=== PATIENT | male | born 2000 | race Hispanic/Latino ===

== ENCOUNTER 2023-11-26 22:56 | Inpatient (IN) | payer BC ==
[2023-11-26] MEDS ORDERED: ONDANSETRON 4 MG/2 ML VIAL ONE (23:25)
[2023-11-26] MEDS ORDERED: FAMOTIDINE 20 MG/2 ML VIAL IV ONE (23:25)
[2023-11-26] MEDS ORDERED: NA CHLORIDE 0.9% 1,000 ML ONE (23:26)
[2023-11-26 23:50] LABS: Absolute Monocytes 0.7 K/uL (0.1-1.3); Absolute Neutrophil 11.6 K/uL (1.8-8.0); Basophils % 0.2 % (0-1.3); Hematocrit 54.4 % (39.6-49.0); Hemoglobin 18.2 g/dL (13.6-17.9); Lymphocytes % 7.6 % (15.3-44.8); MCH 30.7 pg (27.0-35.0); MCHC 33.4 g/dL (32.0-36.0); MCV 91.8 fL (80-100); MPV 7.6 fL (7.6-11.3); Monocytes % 5.2 % (3.3-12.3); Platelets 439 thou/uL (152-406); RBC Red Blood Cell Count 5.92 M/uL (4.33-5.43); Red Cell Distribution Width 14.6 % (12.1-15.2)
[2023-11-26 23:56] LABS: Albumin 6.1 g/dL (3.4-5.0); Albumin/Globulin Ratio 1.2 (1.1-1.8); Anion Gap 17.2 mEq/L (5.0-15.0); Bilirubin Total 1.5 mg/dL (0.2-1.0); Potassium 4.2 mEq/L (3.5-5.1); Protein, Total 11.1 g/dL (6.4-8.2)
[2023-11-27] MEDS ORDERED: NA CHLORIDE 0.9% 1,000 ML ONE (00:09)
--- NOTE | 2023-11-27 00:12 | EDPHYS ---
Physician Documentation [facility] Name: Thaddeus Mathur Jr Age: 23 yrs Sex: Male : 2000 Arrival Date: 11/26/2023 Time: 22:56 Bed 19 Private MD: ED Physician Warner Mccullough HPI: 11/25 23:02 This 23 yrs old Male presents to ER via Unassigned with complaints of Heat kb Exposure, Nausea/Vomiting. 23:02 Pt is a 23 year old male who presents for nausea, vomiting and muscle cramps that kb started around noon today. 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 States he had to finish the day so he continued to work, but would vomit every time he tried to drink water. No aggravating or alleviating factors.. Historical: - Allergies: 23:15 No Known Allergies; ha1 - PMHx: 23:15 None; ha1 - Immunization history:: Adult Immunizations up to date. - Infectious Disease History:: Denies. - Social history:: Smoking status: Reported history of juuling and/or vaping. ROS: 23:02 Constitutional: As per HPI kb Exam: 23:02 Constitutional: This is a well developed, well nourished patient who is awake, alert, kb and in no acute distress. Head/Face: Normocephalic, atraumatic. ENT: Moist Mucous membranes Cardiovascular: Regular rate Respiratory: Respirations even and unlabored. No increased work of breathing. Talking in full sentences Abdomen/GI: Soft, non-tender. No distention Skin: Warm, dry with normal turgor. Normal color. MS/ Extremity: Pulses equal, no cyanosis. Neurovascular intact. Full, normal range of motion. Neuro: Awake and alert, GCS 15, oriented to person, place, time, and situation. Moves all extremities. Normal gait. Vital Signs: 23:04 BP 115 / 81; Pulse 105; Resp 18 S; Temp 98.1(O); Pulse Ox 98% on R/A; Weight 79.38 kg ha1 (R); Height 5 ft. 4 in. ; 23:15 BP 117 / 80; Pulse 89; Resp 19; Temp 98; Pulse Ox 99% on R/A; rg5 08/ 00:17 BP 127 / 78; Pulse 88; Resp 17; Temp 98; Pulse Ox 97% on R/A; rg5 01:10 BP 118 / 75; Pulse 85; Resp 17 S; Pulse Ox 97% on R/A; ha1 11/25 23:04 Body Mass Index 30.04 (79.38 kg, 162.56 cm) ha MDM: 11/25 23:00 Patient medically screened. kb 23:04 Differential diagnosis: dehydration, abnormal electrolytes, rhabdomyolysis. Data kb reviewed: vital signs, nurses notes. 11/26 00:11 Consideration of Admission/Observation Patient was admitted/placed on observation. kb Escalation of care including admission/observation considered. Management of patient was discussed with the following: Hospitalist: Dr Goodrich accepts pt for admission. Counseling: I had a detailed discussion with the patient and/or guardian regarding the historical points, exam findings, and any diagnostic results supporting the discharge/admit diagnosis, lab results, radiology results, the need for further work-up and treatment in the hospital. 11/25 23:04 Order name: CBC with Diff; Complete Time: 01:39 kb 11/25 23:04 Order name: CMP; Complete Time: 00:00 kb 11/25 23:04 Order name: Lipase; Complete Time: 00:00 kb 11/25 23:04 Order name: CPK; Complete Time: 00:00 kb 11/25 23:54 Order name: Manual Differential; Complete Time: 01:39 EDMS 11/26 01:29 Order name: Urinalysis w/ reflexes [facility] 11/26 01:29 Order name: CBC with Automated Diff [facility] 11/26 01:29 Order name: CBC with Automated Diff [facility] 11/26 01:29 Order name: Comprehensive Metabolic Panel [facility] 11/26 01:29 Order name: Comprehensive Metabolic Panel [facility] 11/25 23:04 Order name: IV Saline Lock; Complete Time: 23:33 kb 11/25 23:04 Order name: Labs collected and sent; Complete Time: 23:33 kb Administered Medications: 11/25 23:00 Drug: Ondansetron IVP 4 mg IVP once; over 2 minutes Route: IVP; Site: right antecubital;[facility] 11/26 00:06 Follow up: Response: No adverse reaction [facility] 11/25 23:30 Drug: NS 0.9% IV 1000 ml IV at 1 bolus Per protocol; 1000 mL bolus Route: IV; Rate: 1 rg5 bolus; Site: right antecubital; 23:30 Drug: Famotidine IVP 20 mg IVP once; dilute with 10 mL 0.9% NaCl; give over 2 minutes rg5 Route: IVP; Site: right antecubital; 11/26 00:06 Follow up: Response: No adverse reaction rg5 00:12 Drug: NS 0.9% IV 1000 ml IV at 1000 ml once Route: IV; Rate: 1000 ml; Site: right rg5 antecubital; 00:17 Drug: Cyclobenzaprine PO 10 mg PO once Route: PO; rg5 Disposition: 11/25 23:04 I was immediately available on-site in the Emergency Department for consultation in the ms3 care of the patient. Disposition Summary: 11/27/23 00:12 Hospitalization Ordered Notes: Hospitalization Status: Inpatient Admission kb Provider: Benny Goodrich [facility] kb Condition: Stable kb Problem: new kb Symptoms: are unchanged kb Bed/Room Type: Standard Room Assignment: [place](11/27/23 01:34) Diagnosis - Acute kidney failure, unspecified kb - Dehydration kb Forms: - Medication Reconciliation Form kb - SBAR form kb - Leadership Thank You Letter kb Signatures: Dispatcher [employer] Natalie Tse, MAURO-C MAURO-Liza Correa RN RN Warner Erazo DO DO ms3 Angie Whipple RN RN ha1 Ignacio Ambriz, RN RN rg5 Corrections: (The following items were deleted from the chart) 11/26 01:34 00:12 kb cg
--- NOTE | 2023-11-27 00:12 | ER ---
Nurse's Notes [facility] Name: Thaddeus Mathur Jr Age: 23 yrs Sex: Male : 2000 Arrival Date: 11/26/2023 Time: 22:56 Bed 19 Private MD: Diagnosis: Acute kidney failure, unspecified;Dehydration Presentation: 11/25 23:04 Chief complaint: Patient states: I have been doing some work outdoor today and I feel ha1 very dihydrated, nausea, and vomiting. Coronavirus screen: Vaccine status: Patient reports receiving the 1st dose of the Covid vaccine. Moderna. 23:04 Method Of Arrival: Ambulatory ha1 23:04 Ebola Screen: No symptoms or risks identified at this time. Initial Sepsis Screen: Does ha1 the patient meet any 2 criteria? No. Patient's initial sepsis screen is negative. Does the patient have a suspected source of infection? No. Patient's initial sepsis screen is negative. Risk Assessment: Do you want to hurt yourself or someone else? Patient reports no desire to harm self or others. Onset of symptoms was November 26, 2023. 23:04 Acuity: JEYSON 3 ha1 Triage Assessment: 23:04 General: Appears uncomfortable, Behavior is cooperative. Pain: Complains of pain in ha1 cramping all over the body. Neuro: Level of Consciousness is awake, alert, obeys commands, Oriented to person, place, time, situation. Cardiovascular: Capillary refill < 3 seconds Patient's skin is warm and dry. Respiratory: Airway is patent Trachea midline Respiratory effort is even, unlabored, Respiratory pattern is regular, symmetrical. GI: Abdomen is flat, non-distended, Bowel sounds present X 4 quads. Reports nausea, vomiting. Derm: Skin is moist, Skin is normal. Musculoskeletal: Reports pain in body cramping. Historical: - Allergies: 23:15 No Known Allergies; ha1 - PMHx: 23:15 None; ha1 - Immunization history:: Adult Immunizations up to date. - Infectious Disease History:: Denies. - Social history:: Smoking status: Reported history of juuling and/or vaping. Screenin:17 [facility] ED Fall Risk Assessment (Adult) History of falling in the last 3 months, ha1 including since admission No falls in past 3 months (0 pts) Confusion or Disorientation No (0 pts) Intoxicated or Sedated No (0 pts) Impaired Gait No (0 pts) Mobility Assist Device Used No (0 pt) Altered Elimination No (0 pt) Score/Fall Risk Level 0 - 2 = Low Risk Oriented to surroundings, Maintained a safe environment, Educated pt \T\ family on fall prevention, incl call for assistance when getting out of bed, Hourly rounding (assess needs \T\ fall precautionary measures) done. Abuse screen: Denies threats or abuse. Denies injuries from another. Nutritional screening: No deficits noted. Tuberculosis screening: No symptoms or risk factors identified. Assessment: 23:15 General: Appears uncomfortable, Behavior is calm, cooperative, appropriate for age. rg5 23:15 Pain: Complains of pain in back Pain currently is 5 out of 10 on a pain scale. Quality rg5 of pain is described as crampy, Pain began suddenly, Is intermittent. 23:15 Neuro: Level of Consciousness is awake, alert, obeys commands, Oriented to person, rg5 place, time. Cardiovascular: Capillary refill < 3 seconds Patient's skin is warm and dry. Respiratory: Airway is patent Trachea midline Respiratory effort is even, unlabored, Respiratory pattern is regular, symmetrical. GI: Reports vomiting, since 12HN. : No signs and/or symptoms were reported regarding the genitourinary system. EENT: No deficits noted. Derm: No deficits noted. Musculoskeletal: Range of motion: intact in all extremities. 11/26 00:18 Reassessment: Patient and/or family updated on plan of care and expected duration. Pain rg5 level reassessed. Patient is alert, oriented x 3, equal unlabored respirations, skin warm/dry/pink. Patient states symptoms have improved. 01:10 Reassessment: Patient and/or family updated on plan of care and expected duration. Pain ha1 level reassessed. Patient is alert, oriented x 3, equal unlabored respirations, skin warm/dry/pink. Vital Signs: 11/25 23:04 BP 115 / 81; Pulse 105; Resp 18 S; Temp 98.1(O); Pulse Ox 98% on R/A; Weight 79.38 kg ha1 (R); Height 5 ft. 4 in. ; 23:15 BP 117 / 80; Pulse 89; Resp 19; Temp 98; Pulse Ox 99% on R/A; rg5 11/26 00:17 BP 127 / 78; Pulse 88; Resp 17; Temp 98; Pulse Ox 97% on R/A; rg5 01:10 BP 118 / 75; Pulse 85; Resp 17 S; Pulse Ox 97% on R/A; ha1 11/25 23:04 Body Mass Index 30.04 (79.38 kg, 162.56 cm) ha1 ED Course: 11/25 22:59 Patient arrived in ED. [email or web address] 23:00 Natalie Boland FNP-C is PHCP. kb 23:00 Warner Mccullough DO is Attending Physician. kb 23:04 Patient has correct armband on for positive identification. Bed in low position. Call ha1 light in reach. Side rails up X 1. 23:09 Ignacio Ambriz, RN is Primary Nurse. rg5 23:10 Emesis basin given. rg5 23:15 Triage completed. ha1 23:15 No provider procedures requiring assistance completed. Inserted saline lock: 20 gauge rg5 in right antecubital area, using aseptic technique. Blood collected. Flushed with 10 mL NS. 11/26 00:11 Benny Goodrich MD is Hospitalizing Provider. kb 02:59 Patient admitted, IV remains in place. ha1 03:00 Provided Education on: need for admit . ha1 Administered Medications: 11/25 23:00 Drug: Ondansetron IVP 4 mg IVP once; over 2 minutes Route: IVP; Site: right antecubital;rg5 11/26 00:06 Follow up: Response: No adverse reaction 5 11/25 23:30 Drug: NS 0.9% IV 1000 ml IV at 1 bolus Per protocol; 1000 mL bolus Route: IV; Rate: 1 rg5 bolus; Site: right antecubital; 23:30 Drug: Famotidine IVP 20 mg IVP once; dilute with 10 mL 0.9% NaCl; give over 2 minutes rg5 Route: IVP; Site: right antecubital; 11/26 00:06 Follow up: Response: No adverse reaction 5 00:12 Drug: NS 0.9% IV 1000 ml IV at 1000 ml once Route: IV; Rate: 1000 ml; Site: right rg5 antecubital; 00:17 Drug: Cyclobenzaprine PO 10 mg PO once Route: PO; rg5 Medication: 11/25 23:18 VIS not applicable for this client. ha1 Outcome: 11/26 00:12 Decision to Hospitalize by Provider. kb 02:30 Admitted to Med/surg accompanied by [email or web address], via wheelchair, room 207, with chart, ha1 02:30 Condition: stable 02:30 Instructed on the need for admit, Demonstrated understanding of instructions, 03:00 Patient left the ED. ha1 Signatures: Natalie Boland FNP-C FNP-Nica Ferguson [email or web address] Angie Whipple, RN RN ha1 Ignacio Ambriz, RN RN rg5
[2023-11-27] MEDS ORDERED: CYCLOBENZAPRINE 10 MG TAB ONE (00:14)
[2023-11-27 01:10] LABS: Band Neutrophils 1 % (0-1); Differential Total Cells Count 100; Lymphocytes 19 % (15-42); Monocytes 6 % (0-10); Segmented Neutrophils 74 % (40-80)
[2023-11-27 01:11] LABS: Blood Morphology Comment NOT SEEN (NOT SEEN); Platelet Estimate ADEQ
[2023-11-27] MEDS ORDERED: ACETAMINOPHEN 325 MG TABLET PO PRN (01:25)
[2023-11-27] MEDS ORDERED: ONDANSETRON 4 MG/2 ML VIAL IV PRN (01:25)
--- NOTE | 2023-11-27 01:28 | P.HP ---
Certification for Inpatient Patient admitted to: Observation With expected LOS: <2 Midnights Practitioner: I am a practitioner with admitting privileges, knowledge of patient current condition, hospital course, and medical plan of care. Services: Services provided to patient in accordance with Admission requirements found in Title 42 Section 412.3 of the Code of Federal Regulations Patient History Date of Service: 11/27/23 Reason for admission: Generalized weakness History of Present Illness: 23 yrs old Male with no significant past medical history brought to ER with intractable nausea vomiting and generalized weakness after working under sun . He presents for nausea, vomiting and muscle cramps that started around noon today. 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 States he had to finish the day so he continued to work, but would vomit every time he tried to drink water. Associated with muscle cramps and generalized weakness. Denies any fever or chills. No chest pain or shortness of breath. No sick contacts. Patient was assessed in the ER and was admitted for acute kidney injury and rhabdomyolysis Allergies No Known Allergies Allergy (Unverified 09/01/12 23:42) Home medications list reviewed: Yes - Past Medical/Surgical History Past Medical History: Reviewed- Non-Contributory Past Surgical History: Reviewed- Non-Contributory - Family History Family History: Reviewed- Non-Contributory - Social History Smoking Status: Never smoker Review of Systems 10-point ROS is otherwise unremarkable Physical Examination - Vital Signs Temperature: 98.1 F Blood Pressure: 114/80 Pulse: 100 Respirations: 18 Pulse Ox (%): 94 - Physical Exam General: Alert, In no apparent distress, Oriented x3 HEENT: Atraumatic, Normocephalic Neck: Supple, 2+ carotid pulse no bruit, JVD not distended Respiratory: Clear to auscultation bilaterally, Normal air movement Cardiovascular: Regular rate/rhythm, Normal S1 S2 Capillary refill: <2 Seconds Gastrointestinal: Soft and benign, W/out hepatosplenomegaly, No tenderness, No masses Musculoskeletal: No clubbing, No swelling Integumentary: No rashes, No breakdown Neurological: Normal gait, Normal speech, Normal strength at 5/5 x4 extr, Sensation intact, Cranial nerves 3-12 intact Lymphatics: No axilla or inguinal lymphadenopathy - Studies Laboratory Data (last 24 hrs) 11/26/23 11/26/23 23:20 23:20 WBC 13.30 H Hgb 18.2 H Hct 54.4 H Plt Count 439 H Sodium 132 L Potassium 4.2 BUN 28 H Creatinine 3.66 H Glucose 129 H Total Bilirubin 1.5 H AST 52 H ALT 121 H Alkaline Phosphatase 123 H Lipase 41 Assessment and Plan - Plan Rhabdomyolysis Pain control Started on IV hydration Initial CK level is 680 Monitor CK levels in a.m. Dehydration Acute kidney injury Hyponatremia Hypochloremia IV hydration Monitor renal parameters Electrolytes monitor and replace accordingly Elevated LFTs Monitor LFTs in a.m. Will get an ultrasound of the liver if LFTs trending higher Leukocytosis Polycythemia Possibly due to dehydration Repeat CBC in a.m. GI/DVT prophylaxis Advanced directive full code Discharge Plan: Home Plan to discharge in: 48 Hours - Advance Directives Does patient have a Living Will: No Does patient have a Durable POA for Healthcare: No - Code Status/Comfort Care Code Status: Full Code Time Spent Managing Pts Care (In Minutes): 48
[2023-11-27] MEDS: NA CHLORIDE 0.9% 1,000 ML IV SCH (03:50)
[2023-11-27 05:57] VITALS: BMI 29.9
[2023-11-27] MEDS: HYDROCODONE/APAP 10/325 TAB PO PRN (06:26)
[2023-11-27] MEDS: CYCLOBENZAPRINE 10 MG TAB PO PRN (08:14)
--- NOTE | 2023-11-27 08:25 | P.PN ---
Date of Service: 11/27/23 23 yrs old Male with no significant past medical history brought to ER with intractable nausea vomiting and generalized weakness after working under sun . He presents for nausea, vomiting and muscle cramps that started around noon today. 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 States he had to finish the day so he continued to work, but would vomit every time he tried to drink water. Associated with muscle cramps and generalized weakness. Denies any fever or chills. No chest pain or shortness of breath. No sick contacts. Patient was assessed in the ER and was admitted for acute kidney injury and rhabdomyolysis Allergies No Known Allergies Allergy (Unverified 09/01/12 23:42) Home medications list reviewed: Yes - Past Medical/Surgical History Past Medical History: Reviewed- Non-Contributory Past Surgical History: Reviewed- Non-Contributory - Family History Family History: Reviewed- Non-Contributory - Social History Smoking Status: Never smoker Review of Systems 10-point ROS is otherwise unremarkable Physical Examination - Vital Signs reviewed - Physical Exam General: Alert, In no apparent distress, Oriented x3, tired appearing HEENT: Atraumatic, Normocephalic Neck: Supple, 2+ carotid pulse no bruit, JVD not distended Respiratory: Clear to auscultation bilaterally, Normal air movement Cardiovascular: Regular rate/rhythm, Normal S1 S2 Capillary refill: <2 Seconds Gastrointestinal: Soft and benign, W/out hepatosplenomegaly, No tenderness, No masses Musculoskeletal: No clubbing, No swelling Integumentary: No rashes, No breakdown Neurological: Normal gait, Normal speech, Normal strength at 5/5 x4 extr, Sensation intact, Cranial nerves 3-12 intact Lymphatics: No axilla or inguinal lymphadenopathy Assessment and Plan - Plan Rhabdomyolysis Pain control Started on IV hydration Initial CK level is 680 Monitor CK levels in a.m. Dehydration Acute kidney injury Hyponatremia Hypochloremia IV hydration Monitor renal parameters Electrolytes monitor and replace accordingly Elevated LFTs Monitor LFTs in a.m. Will get an ultrasound of the liver if LFTs trending higher Leukocytosis Polycythemia Possibly due to dehydration Repeat CBC in a.m. GI/DVT prophylaxis Advanced directive full code Discharge Plan: Home Plan to discharge in: 48 Hours - Advance Directives Does patient have a Living Will: No Does patient have a Durable POA for Healthcare: No - Code Status/Comfort Care Code Status: Full Code <Lyudmila Cano Audi - Last Filed: 11/27/23 08:26> Pt seen and examined. I agree with the note by the LEAD RAMP AGENT. CK is trending up 680 - > 720. Cr improved from 3.66 to 1.33. Will continue IVF and monitor labs. Pt was advised to drink a lot of water when working outside. Consulted Nephrology. <Mildred Ramirez - Last Filed: 11/27/23 11:04>
[2023-11-27 08:55] LABS: Absolute Basophils 0.1 K/uL (0-0.5); Absolute Eosinophils 0.3 K/uL (0-0.5); Absolute Monocytes 1.6 K/uL (0.1-1.3); Absolute Neutrophil 8.1 K/uL (1.8-8.0); Basophils % 0.5 % (0-1.3); Eosinophils % 2.2 % (0-4.4); Hematocrit 45.7 % (39.6-49.0); Hemoglobin 15.2 g/dL (13.6-17.9); Lymphocytes % 22.9 % (15.3-44.8); MCH 30.5 pg (27.0-35.0); MCHC 33.3 g/dL (32.0-36.0); MCV 91.5 fL (80-100); MPV 7.1 fL (7.6-11.3); Neutrophils % 62.4 % (41.7-73.7); Nucleated Red Blood Cells % 0.1 % (0-0); Platelets 352 thou/uL (152-406); RBC Red Blood Cell Count 4.99 M/uL (4.33-5.43); Red Cell Distribution Width 14.3 % (12.1-15.2)
[2023-11-27 09:06] LABS: Anion Gap 6.7 mEq/L (5.0-15.0); Potassium 3.7 mEq/L (3.5-5.1)
[2023-11-27 09:41] LABS: Specific Gravity 1.023 (1.005-1.030); Sqamous Epithelial <5 /HPF (None Seen); Urine Bacteria None Seen /HPF (<20); Urine Bilirubin NEGATIVE (Negative); Urine Blood Negative (Negative); Urine Clarity Extremely Turbid (Clear); Urine Color Light-Yellow (Yellow); Urine Culture Reflex Order NOT NEEDED; Urine Glucose NEGATIVE (Negative); Urine Ketones 2+ (Negative); Urine Microscopic Reflex YN ORDER UMIC; Urine Mucus Slight /HPF (None Seen); Urine Nitrite NEGATIVE (Negative); Urine Protein TRACE (Negative); Urine RBC >50 /HPF (None Seen); Urine Urobilinogen Normal (Normal); Urine WBC <5 /HPF (<5); Urine pH 5.5 (5.0-7.0)
[2023-11-27 20:01] VITALS: O2SAT 95
[2023-11-28 05:43] LABS: Absolute Basophils 0.1 K/uL (0-0.5); Absolute Eosinophils 0.3 K/uL (0-0.5); Absolute Lymphocytes (CBC) 3.7 K/uL (0.7-4.9); Absolute Monocytes 0.8 K/uL (0.1-1.3); Absolute Neutrophil 3.2 K/uL (1.8-8.0); Basophils % 0.6 % (0-1.3); Eosinophils % 3.6 % (0-4.4); Hematocrit 42.6 % (39.6-49.0); Hemoglobin 14.4 g/dL (13.6-17.9); Lymphocytes % 45.9 % (15.3-44.8); MCH 31.3 pg (27.0-35.0); MCHC 33.9 g/dL (32.0-36.0); MCV 92.2 fL (80-100); MPV 7.5 fL (7.6-11.3); Monocytes % 9.6 % (3.3-12.3); Neutrophils % 40.3 % (41.7-73.7); Nucleated Red Blood Cells % 0.3 % (0-0); Platelets 321 thou/uL (152-406); RBC Red Blood Cell Count 4.62 M/uL (4.33-5.43); Red Cell Distribution Width 14.2 % (12.1-15.2)
[2023-11-28 06:20] LABS: Albumin 3.5 g/dL (3.4-5.0); Anion Gap 8.2 mEq/L (5.0-15.0); Bilirubin Total 0.6 mg/dL (0.2-1.0); Globulin 3.4 g/dL (2.3-3.5); Potassium 4.2 mEq/L (3.5-5.1); Protein, Total 6.9 g/dL (6.4-8.2)
--- NOTE | 2023-11-28 06:35 | P.DS ---
Admission Date: 11/27/23 Discharge Date: 11/28/23 Reason for Admission: Generalized weakness Brief History of Present Illness: 23 yrs old Male with no significant past medical history brought to ER with intractable nausea vomiting and generalized weakness after working under s [email or web address] . He presents for nausea, vomiting and muscle cramps that started around noon today. 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 States he had to finish the day so he continued to work, but would vomit every time he tried to drink water. Associated with muscle cramps and generalized weakness. Denies any fever or chills. No chest pain or shortness of breath. No sick co ntacts. Patient was assessed in the ER and was admitted for acute kidney injury and rhabdomyolysis Hospital Course: Mr. Mathur did well over the course of his hospitalization. He was hydrated with IV fluids. He is tolerating his diet. He will not need any medications upon discharge but is encouraged to drink plenty of fluids and avoid long stretches in the heat. I will give some prn muscle relaxers and nausea medication in case he has some problems. He should not return to work until 11/30/23. <Lyudmila Cano - Last Filed: 11/28/23 07:36> Admission Date: 11/27/23 Discharge Date: 11/28/23 Hospital Course: Pt francesca nd examined. I agree with the note by the TMR TEACHER> His renal function improved. Pt was advised to drink water at home. Ok to discharge pt. <Mildred Ramirez - Last Filed: 11/28/23 12:01> Disposition: ROUTINE DISCHARGE Discharge Condition: GOOD Vital Signs/Physical Exam: Temp Pulse Resp BP Pulse Ox 97.4 F 92 H 18 118/76 96 11/28/23 04:00 11/28/23 04:00 11/28/23 04:00 11/28/23 04:00 11/28/23 04:00 General: Alert, In no apparent distress, Oriented x3 HEENT: Atraumatic, Normocephalic Neck: Supple Respiratory: Clear to auscultation bilaterally, Normal air movement Cardiovascular: Normal pulses, Regular rate/rhythm Capillary refill: <2 Seconds Gastrointestinal: Normal bowel sounds, Soft and benign Musculoskeletal: No clubbing Integumentary: No rashes Neurological: Normal speech, Normal tone, Normal affect Lymphatics: No axilla or inguinal lymphadenopathy External genitalia: Deferred Rectal: Deferred Laboratory Data at Discharge: WBC 8.00 thou/uL (4.3-10.9) 11/28/23 04:55 Hgb 14.4 g/dL (13.6-17.9) 11/28/23 04:55 Hct 42.6 % (39.6-49.0) 11/28/23 04:55 Plt Count 321 thou/uL (152-406) 11/28/23 04:55 Sodium 135 mEq/L (136-145) L 11/28/23 04:55 Potassium 4.2 mEq/L (3.5-5.1) D 11/28/23 04:55 BUN 10 mg/dL (7-18) 11/28/23 04:55 Creatinine 0.62 mg/dL (0.70-1.30) L 11/28/23 04:55 Glucose 125 mg/dL (74-106) H 11/28/23 04:55 Total Bilirubin 0.6 mg/dL (0.2-1.0) 11/28/23 04:55 AST 35 U/L (15-37) 11/28/23 04:55 ALT 64 U/L (16-61) H 11/28/23 04:55 Alkaline Phosphatase 111 U/L (45-117) 11/28/23 04:55 Lipase 41 U/L (13-75) 11/26/23 23:20 <Cano,Lyudmila Audi - Last Filed: 11/28/23 07:36> Vital Signs/Physical Exam: Temp Pulse Resp BP Pulse Ox 97.6 F 74 16 140/91 H 100 11/28/23 08:00 11/28/23 08:00 11/28/23 08:00 11/28/23 08:00 11/28/23 08:00 Laboratory Data at Discharge: WBC 8.00 thou/uL (4.3-10.9) 11/28/23 04:55 Hgb 14.4 g/dL (13.6-17.9) 11/28/23 04:55 Hct 42.6 % (39.6-49.0) 11/28/23 04:55 Plt Count 321 thou/uL (152-406) 11/28/23 04:55 Sodium 135 mEq/L (136-145) L 11/28/23 04:55 Potassium 4.2 mEq/L (3.5-5.1) D 11/28/23 04:55 BUN 10 mg/dL (7-18) 11/28/23 04:55 Creatinine 0.62 mg/dL (0.70-1.30) L 11/28/23 04:55 Glucose 125 mg/dL (74-106) H 11/28/23 04:55 Phosphorus Cancelled 11/28/23 Unknown Magnesium Cancelled 11/28/23 Unknown Total Bilirubin 0.6 mg/dL (0.2-1.0) 11/28/23 04:55 AST 35 U/L (15-37) 11/28/23 04:55 ALT 64 U/L (16-61) H 11/28/23 04:55 Alkaline Phosphatase 111 U/L (45-117) 11/28/23 04:55 Lipase 41 U/L (13-75) 11/26/23 23:20 <Mildred Ramirez - Last Filed: 11/28/23 12:01> Diet: Regular Activity: Ad gerardo <Lyudmila Cano - Last Filed: 11/28/23 07:36> <Mildred Ramirez - Last Filed: 11/28/23 12:01> Home Medications: Ondansetron [Zofran] 4 mg PO Q6H PRN #20 tab 11/28/23 Tizanidine HCl 2 mg PO TID PRN #18 11/28/23 New Medications: Tizanidine HCl 2 mg PO TID PRN #18 PRN Reason: Muscle Spasms Ondansetron [Zofran] 4 mg PO Q6H PRN #20 tab PRN Reason: Nausea / Vomiting Physician Discharge Instructions: Mr. Mathur did well over the course of his hospitalization. He was hydrated with IV fluids. He is tolerating his diet. He will not need any medications upon discharge but is encouraged to drink plenty of fluids and avoid long stretches in the heat. I will give some prn muscle relaxers and nausea medication in case he has some problems. He should not return to work until 11/30/23 Followup: NONE,NONE [Primary Care Provider] -
[2023-11-28 08:36] VITALS: BP 140/91; TEMP 97.6
== END 2023-11-28 09:10 | disposition home or self-care (01) | DRG 683 ==
LOC: ER 22:56 → 2ND 11-27 01:25 → OBSVTOIN 11-27 11:42
PROVIDERS: ADMIT Family Medicine; ATTEND Hospitalist
DX: N17.9 Acute kidney failure, unspecified (principal); E87.1 Hypo-osmolality and hyponatremia; M62.82 Rhabdomyolysis; E86.0 Dehydration; E87.8 Other disorders of electrolyte and fluid balance, not elsewhere classified; D72.829 Elevated white blood cell count, unspecified; R79.89 Other specified abnormal findings of blood chemistry; Z79.899 Other long term (current) drug therapy
CPT/HCPCS: 36415; 80048; 80053; 81001; 82550; 83690; 85025; 94760; 96374; 96375; 99285; G0378; J2405; J7030